=== PATIENT | male | born 1940 | race Caucasian/White ===

== ENCOUNTER → 2016-10-15 | Day surgery (SDC) | payer MEDICARE ==
[~2016-10-15] MED LIST: BUPIVACAINE HCL PF 0.5% 30 ML VIAL ONE; LACTATED RINGER'S 1,000 ML BAG IV ONE; LACTATED RINGER'S 1000 ML INJ 1,000 ML ONE; MIDAZOLAM HCL 2 MG/2 ML VIAL ONE; PROPOFOL 200 MG/20 ML AMP IV ONE; ceFAZolin 2 GM PREMIX 50 ML ONE
--- NOTE | 2016-10-15 23:19 | MP ---
cc: AUSTIN PRESTON DPM DATE OF SURGERY 10/15/16 PREOPERATIVE DIAGNOSIS Left Achilles tendon full-thickness wound dehiscence, possible deep suture reaction versus graft rejection POSTOPERATIVE DIAGNOSIS Left Achilles tendon full-thickness wound dehiscence, possible deep suture reaction versus graft rejection PROCEDURES PERFORMED Left Achilles tendon ulcer debridement, removal with graft and deep suture with application of wound VAC SPECIMEN Left Achilles tendon, soft tissue for microbial analysis. ESTIMATED BLOOD LOSS Less than 100 mL COMPLICATIONS None ANESTHESIA General with local. Wound VAC applied at 125 continues mmHg and posterior splint applied. TOURNIQUET None PLAN OF ACTIVITY PACU then DC home once stable per same-day surgery criteria JUSTIFICATION FOR PROCEDURE A 76-year-old male who is approximately five weeks status post Achilles tendon repair. Within the last 2 1/2 weeks, the patient developed severe redness, wound dehiscence and serous drainage x2 wound cultures that revealed negative infection, however, high suspicion for graft rejection versus deep suture reaction reviewed as a possible complication. The patient was educated on the negative healing of the wound and the need to debride all devitalized tissue, debride deep graft as well as remove all suture material. The patient understood this will likely compromise some of the surgery that was performed with a possibility of need for more surgery including a possible [facility] transfer or permanent bracing of the extremity. PROCEDURE IN DETAIL Under mild sedation, the patient was brought into the operating room, placed on the operating table the supine position. Following the induction endotracheal tubal intubation, the patient was then positioned prone. The left lower extremity was scrubbed, prepped and draped in the usual aseptic fashion. The foot was elevated, examined. There was noted to be exposed tendon and suture material along the area of the graft at the previous surgical site measuring approximately 5 cm x 4 cm. A linear incision was made at the area of a granulomatous type skin lesion. The suture material was evident and then excised. All of the suture material was removed and the posterior most half of the graft as well as any graft jacket that was visually seen. There is no signs of infection. This appeared to cause devitalization of at least half of the Achilles tendon. However, the other half remained intact. The wound was then sutured proximally and then a wound VAC applied after excising all nonviable tissue to viable bleeding tissue of the distal portion of the Achilles. The wound deficit now measured 4 cm x 3 cm with exposed tendon. The patient was then transferred from OR to PACU after being placed in the prone position. Wound VAC was applied before applying final bandage under adequate seal and suction 125 mmHg. A posterior splint was then applied. The patient will remain non-weightbearing and follow up in my office within three days for a wound VAC change. ASHVIN Snyder/ /1:46 PM /11:08 PM ANDREW
== END | disposition home or self-care (01) ==
LOC: ESDC 10:44
PROVIDERS: ATTEND Podiatrist Foot & Ankle Surgery
DX: L97.522 Non-pressure chronic ulcer of other part of left foot with fat layer exposed (principal); B96.89 Other specified bacterial agents as the cause of diseases classified elsewhere
CPT/HCPCS: 00400; 11042; 86403; 87070; 87205; J0690; J2250; J3010; J7120; 87077; 87186

== ENCOUNTER → 2016-11-21 | Day surgery (SDC) | payer MEDICARE ==
[~2016-11-21] MED LIST changes: +BUPIVACAINE HCL PF 0.25% 30 ML VIAL ONE; -BUPIVACAINE HCL PF 0.5% 30 ML VIAL ONE; +KETOROLAC TROMETHAMINE 30 MG/ML (IVP) VIAL IV PUSH ONE; -LACTATED RINGER'S 1,000 ML BAG IV ONE; +LIDOCAINE 1%/EPINEPHrine 1:100,000 SOLN 20 ML VIAL ONE; +LIDOCAINE 1%/EPINEPHrine 1:100,000 SOLN 30 ML VIAL ONE; +MINERAL OIL 10 ML VIAL ONE; +ONDANSETRON HCL 4 MG/2 ML VIAL IV PUSH ONE
--- NOTE | 2016-11-22 12:50 | MP ---
cc: AUSTIN PRESTON DPM DATE OF SURGERY 11/21/2016 PREOPERATIVE DIAGNOSIS Ulcer left posterior leg. POSTOPERATIVE DIAGNOSIS Ulcer left posterior leg. PROCEDURES PERFORMED Preparation of wound beds and graft placement, split-thickness skin graft harvest of left upper thigh and wound Vac application. SPECIMEN None ESTIMATED BLOOD LOSS Less than [address] Kimmy Navarro COMPLICATIONS None ANESTHESIA General with local approximately 20 cc of 0.25% Marcaine with epinephrine. TOURNIQUET TIME None DISPOSITION PACU then DC home once stable per same-day surgery criteria. PROCEDURE IN DETAIL Under mild sedation, the patient was brought into the operating room and remained on the operative gurney. He was then induced into general anesthesia and then placed in the prone position on the operative table. The patient's left lower extremity up to the left lower thigh and buttock area was prepped down to the level of the distal foot. The patient was scrubbed, prepped and draped in the usual aseptic fashion. The left posterior ankle ulcer was examined. There was noted to be minimal exposure of the Achilles tendon. There was overall granular red, beefy base. Utilizing a combination of curette, rongeur and sharp selective debridement, all fibrotic and nonviable tissue was removed from the ulcer measuring approximately 3.5 cm x 5.5 cm. Next utilizing the Marilee dermatome, a graft was then harvested from the patient's lateral upper thigh after infiltrating the area with 20 cc of 0.25% Marcaine plain. The graft was then placed through the mesher and allowed for fenestration. The graft was then applied and sutured intact to the posterior Achilles wound and sutured. A wound Vac was then placed under 75 mmHg continuous suction. There was noted to be a small opening more proximal and the Achilles was debrided and a delayed primary closure of the wound took place utilizing nylon suture. The patient was then positioned in a Cabello compressive dressing and posterior splint. Xeroform was a place to the harvesting site and Adaptic was taped the thigh wound. The patient is transferred from OR to PACU upon being placed supine and extubated. No complications noted. The patient is non-weightbearing. He will follow up within 3-5 days. ASHVIN Snyder/JE /12:36 PM /12:45 PM
== END | disposition home or self-care (01) ==
LOC: ESDC 09:35
PROVIDERS: ATTEND Podiatrist Foot & Ankle Surgery
DX: L97.322 Non-pressure chronic ulcer of left ankle with fat layer exposed (principal)
CPT/HCPCS: 00400; 11042; 15100; J0690; J1885; J2250; J2405; J3010; J7120